=== PATIENT | male | born 1980 | race Two or more races ===

== ENCOUNTER 2016-10-02 17:54 | Emergency (ER) | payer OTHER ==
[~2016-10-02] VITALS: Ht 172.7 cm; Wt 99.8 kg
[2016-10-02 18:01] VITALS: BP 109/84
[2016-10-02] MEDS ORDERED: cefTRIAXone SOD 1,000 MG VL IM ONE (18:30)
== END 2016-10-02 19:11 | disposition home or self-care (01) ==
LOC: ER 18:02
DX: L03.116 Cellulitis of left lower limb (principal)
CPT/HCPCS: 96372; 99283; J0696